=== PATIENT | male | born 1945 | race Hispanic/Latino ===

== ENCOUNTER → 2023-03-16 | Outpatient (CLI) | payer OTHER ==
[~2023-03-16] MED LIST: AMLO-258 PO; ASPI-1197 PO; ATOR40TA71 PO; CHOL100044 PO; FOLI1TAB15 PO; LOSA100T59 PO; METO25TA6 PO; OMEGA PO; VITA1CAP85 PO
== END | disposition home or self-care (01) ==
LOC: SHCH 13:23
PROVIDERS: ATTEND Internal Medicine Cardiovascular Disease
DX: I31.39 Other pericardial effusion (noninflammatory) (principal); I08.1 Rheumatic disorders of both mitral and tricuspid valves; I47.10 Supraventricular tachycardia, unspecified; I11.9 Hypertensive heart disease without heart failure; E78.5 Hyperlipidemia, unspecified; E66.9 Obesity, unspecified
CPT/HCPCS: 93306

== ENCOUNTER → 2025-02-03 | Outpatient (CLI) | payer OTHER ==
[2025-02-03 22:07] VITALS: PULSE 70; RESP 34
[2025-02-03 22:30] VITALS: PULSE 70; RESP 12
[2025-02-03 23:00] VITALS: PULSE 68; RESP 30
[2025-02-03 23:30] VITALS: PULSE 68; RESP 16
[2025-02-04] VITALS (10 sets, daily range): PULSE 62–70; RESP 14–18
--- NOTE | 2025-02-04 03:00 | NUR ---
DOCUSATE 100MG, APIXABAN 5MG,ATORVASTATIN 80MG,CLOPIDOGREL 75MG,METHOCARBAMOL 500MG,METFORMIN 500MG, Addendum: 02/04/25 at 0305 by DANIE CASTELLANOS Amended: Links added.
== END | disposition home or self-care (01) ==
LOC: SLP 20:27
PROVIDERS: ATTEND Internal Medicine Cardiovascular Disease
DX: G47.33 Obstructive sleep apnea (adult) (pediatric) (principal); R06.83 Snoring; I10 Essential (primary) hypertension; F32.A Depression, unspecified; R35.0 Frequency of micturition
CPT/HCPCS: 95810